=== PATIENT | female | born 1940 | race Hispanic/Latino ===

== ENCOUNTER → 2018-01-13 | Outpatient (CLI) | payer OTHER ==
[~2018-01-13] MED LIST: IOHEXOL 350 MG/ML 100ML INFUS..BTL IV ONE
== END | disposition home or self-care (01) ==
LOC: OIH 09:32
PROVIDERS: ATTEND Internal Medicine
DX: R93.3 Abnormal findings on diagnostic imaging of other parts of digestive tract (principal); K76.89 Other specified diseases of liver; D69.8 Other specified hemorrhagic conditions; K83.8 Other specified diseases of biliary tract; K86.3 Pseudocyst of pancreas; K82.8 Other specified diseases of gallbladder
CPT/HCPCS: 74170; Q9967